=== PATIENT | female | born 1945 | race Caucasian/White ===

== ENCOUNTER 2016-07-29 05:27 | Day surgery (SDC) | payer MEDICARE, OTHER ==
--- NOTE | ~2016-07-29 | EGD ---
EGD REPORT [facility] [address] [place] [id number] NAME: MARIANA SALMERON : 45 STATUS : REG [facility] [place] PAT#: [id number] AGE: 70 ADM/REG DATE : 07/29/16 MR#: [id number] REPORT SERV DATE: 07/29/16 DICTATED BY: ESPINOZA BREWER DATE: 07/29/16 REPORT STATUS : Draft TRANSCRIBED BY: [facility] DATE: 07/29/16 Endoscopy Center Patient Name: Mariana Salmeron Date of : 1945 Attending MD: ESPINOZA BREWER MD Procedure Date No Time: 07/29/2016 Procedure: Upper GI endoscopy Indications: Heartburn; Atypical chest pain; Omeprazole prn. Patient Profile: Informed consent was obtained from the patient by me prior to the procedure. Risks, benefits, and alternatives were discussed including the risk of bleeding, perforation, infection, reaction to medicine, missed lesion, and cardiopulmonary complications. Referring MD: GAVIN SIDHU Medicines: Monitored Anesthesia Care Complications: No immediate complications. Procedure: Pre-Anesthesia Assessment: - ASA Grade Assessment: III - A patient with severe systemic disease. After obtaining informed consent, the endoscope was passed under direct vision. Throughout the procedure, the patient's blood pressure, pulse, and oxygen saturations were monitored continuously. The GIF [id number] was introduced through the mouth, and advanced to the second part of duodenum. The endoscope was withdrawn with careful examination all mucosal surfaces including retroflexion stomach. The upper GI endoscopy was accomplished without difficulty. The patient tolerated the procedure well. Findings: The first part of the duodenum and 2nd part of the duodenum were normal. Biopsies were taken with a cold forceps for histology. Patchy mildly erythematous mucosa was found in the gastric antrum. Biopsies were taken with a cold forceps for histology. The cardia, gastric fundus and gastric body were normal. LA Grade A (one or more mucosal breaks less than 5 mm, not extending between tops of 2 mucosal folds) esophagitis was found. Biopsies were taken with a cold forceps for histology. No nodules or San's. The examined esophagus was normal. Biopsies were taken with a cold forceps for histology from mid and upper. Impression: - Normal first part of the duodenum and 2nd part of the duodenum. Biopsied. - Erythematous mucosa in the antrum. Biopsied. EGD REPORT [address] [id number] NAME: MARIANA SALMERON : 45 STATUS : REG [facility]#: [id number] AGE: 70 ADM/REG DATE : 07/29/16 MR#: [id number] REPORT SERV DATE: 07/29/16 DICTATED BY: ESPINOZA BREWER DATE: 07/29/16 REPORT STATUS : Draft TRANSCRIBED BY: [employer] [facility] DATE: 07/29/16 - Normal cardia, gastric fundus and gastric body. - LA Grade A reflux esophagitis. Biopsied. - Normal esophagus. Biopsied. Recommendation: - Patient has a contact number available for emergencies. The signs and symptoms of potential delayed complications were discussed with the patient. Return to normal activities tomorrow. Written discharge instructions were provided to the patient. - Regular diet. - Continue present medications. - Await pathology results. - Take Omeprazole 20mg daily. Procedure Code(s): --- Professional --- 32009, Esophagogastroduodenoscopy, flexible, transoral; with biopsy, single or multiple Diagnosis Code(s): --- Professional --- K31.9, Disease of stomach and duodenum, unspecified K21.0, Gastro-esophageal reflux disease with esophagitis R12, Heartburn CPT copyright 2013 [employer]. All rights reserved. The codes documented in this report are preliminary and upon doctor of naprapathy review may be revised to meet current compliance requirements. ESPINOZA BREWER MD 07/29/2016 7:26 AM This report has been signed electronically. Number of Addenda: 0 Note Initiated On: 07/29/2016 7:05 AM Scope Withdrawal Time 0 hours 0 minutes 0 seconds [id number] [id number]
[~2016-07-29 05:27] MED LIST: ALLEGRA180 PO; ALOE VERA5000 MG PO; ASAB PO; BENTYL10 PO; BIOTIN5 MG PO; LEVOTHYROXIN50 MCG PO; LOP25 PO; MOBIC15 MG PO; PRAVACHOL40 MG PO; ULTIMATE FLORA PO; VITAMIN D31000 UNIT PO; X25 PO; [UNRECOGNIZED DRUG - OTHER] PO
== END 2016-07-29 23:59 | disposition home or self-care (01) ==
LOC: DMU 05:27
PROVIDERS: Internal Medicine Gastroenterology
PROC: 0DB58ZX Excision of Esophagus, Via Natural or Artificial Opening Endoscopic, Diagnostic (ICD-10-PCS; 2016-07-29)
PROC: 0DB48ZX Excision of Esophagogastric Junction, Via Natural or Artificial Opening Endoscopic, Diagnostic (ICD-10-PCS; 2016-07-29)
PROC: 0DB68ZX Excision of Stomach, Via Natural or Artificial Opening Endoscopic, Diagnostic (ICD-10-PCS; 2016-07-29)
PROC: 0DB98ZX Excision of Duodenum, Via Natural or Artificial Opening Endoscopic, Diagnostic (ICD-10-PCS; principal; 2016-07-29 07:00)
DX: K29.70 Gastritis, unspecified, without bleeding (principal); K31.9 Disease of stomach and duodenum, unspecified; K21.9 Gastro-esophageal reflux disease without esophagitis; I10 Essential (primary) hypertension; E78.00 Pure hypercholesterolemia, unspecified; M19.90 Unspecified osteoarthritis, unspecified site; M79.7 Fibromyalgia; F41.9 Anxiety disorder, unspecified; E03.9 Hypothyroidism, unspecified; I25.10 Atherosclerotic heart disease of native coronary artery without angina pectoris; E11.9 Type 2 diabetes mellitus without complications; Z88.2 Allergy status to sulfonamides; Z95.5 Presence of coronary angioplasty implant and graft; Z88.1 Allergy status to other antibiotic agents; Z88.5 Allergy status to narcotic agent; Z98.51 Tubal ligation status; Z98.41 Cataract extraction status, right eye; Z98.42 Cataract extraction status, left eye; Z98.890 Other specified postprocedural states
CPT/HCPCS: 88305